=== PATIENT | male | born 1980 | race Caucasian/White ===

== ENCOUNTER 2017-07-31 09:28 | Emergency (ER) | payer OTHER ==
[2017-07-31 09:40] VITALS: BP 117/76; PULSE 61; TEMP 98.4; BMI 28.7
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
== END 2017-07-31 10:45 | disposition home or self-care (01) ==
LOC: FER 09:28
DX: S63.501A Unspecified sprain of right wrist, initial encounter (principal); W18.39XA Other fall on same level, initial encounter; Y93.89 Activity, other specified; Y92.89 Other specified places as the place of occurrence of the external cause
CPT/HCPCS: 73110-TC-RT; 73130-TC-RT; 99282-25

== ENCOUNTER 2018-07-25 18:49 | Emergency (ER) | payer OTHER ==
[2018-07-25 19:03] VITALS: BP 121/53; PULSE 87; BMI 30.1
[2018-07-25] MEDS ORDERED: ACETAMINOPHEN 325 MG TABLET (FP) PO ONE (20:11)
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
[2018-07-25] MEDS ORDERED: ACETAMINOPHEN 325 MG TABLET (FP) ONE (20:59)
== END 2018-07-25 21:05 | disposition home or self-care (01) ==
LOC: JERFT 18:49
DX: S59.802A Other specified injuries of left elbow, initial encounter (principal); W27.8XXA Contact with other nonpowered hand tool, initial encounter; X02.4XXA Hit by object from burning building or structure in controlled fire, initial encounter; Y93.89 Activity, other specified; Y92.038 Other place in apartment as the place of occurrence of the external cause; Y99.0 Civilian activity done for income or pay
CPT/HCPCS: 73070-TC-LT-FY; 99281-25